=== PATIENT | female | born 1960 | race Caucasian/White ===

== ENCOUNTER 2020-10-18 10:36 | Inpatient (IN) ==
[2020-10-18] MEDS ORDERED: IPRATROPIUM/ALBUTEROL 3 ML AMPUL.NEB NEB ONE (10:46)
[2020-10-18] MEDS ORDERED: ONDANSETRON 4 MG ODT TABLET SL ONE (10:46)
[2020-10-18] MEDS ORDERED: DEXAMETHASONE 10 MG/ML VIAL IM ONE (10:46)
[2020-10-18] MEDS ORDERED: HYDROcodone/APAP 5/325MG TABLET PO ONE (10:46)
[2020-10-18] MEDS ORDERED: ALBUTEROL SULFATE 5 MG/ML NEB SOLUTION BOTTLE NEB ONE (11:28)
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
[2020-10-18 14:49] LABS: Blood Urea Nitrogen 16 mg/dL (8-23); Carbon Dioxide 25 mmol/L (22-30); Chloride 100 mmol/L (96-108); Glomerular Filtration Rate 79; Glucose 121 mg/dL (70-105)
--- NOTE | 2020-10-18 14:53 | XRay Report ---
CLINICAL INFORMATION: SOB COMPARISON: 10/05/2020 FINDINGS: Heart size, mediastinum and pulmonary vessels are normal. Lung volumes are mildly elevated with minimal wall thickening of the central bronchi compatible with clinical diagnosis of asthma. No change. No infiltrates or effusions. IMPRESSION: Asthma-no change Interpreted and Authenticated by: Olaf Mckeon 10/18/20
[2020-10-18 14:55] LABS: Basophils # (Auto) 0.01 K/mcL (0.00-0.20); Basophils % (Auto) 0.1 % (0.0-2.0); Eosinophils # (Auto) 0.07 K/mcL (0.00-0.70); Eosinophils % (Auto) 0.8 % (0.0-7.0); Hematocrit 39.7 % (36.0-48.0); Lymphocytes # (Auto) 0.43 K/mcL (1.50-4.80); Lymphocytes % (Auto) 4.9 % (15.0-49.0); Mean Corpuscular HGB Conc 32.7 g/dL (31.0-36.0); Mean Platelet Volume 10.2 fL (7.4-10.4); Monocytes # (Auto) 0.13 K/mcL (0.10-0.90); Monocytes % (Auto) 1.5 % (1.0-12.0); Neutrophils % (Auto) 92.7 % (38.0-78.0); Platelet Count 143 K/mcL (140-440); RBC 4.18 M/mcL (4.00-5.20); Red Cell Distribution Width 14.6 % (11.5-14.5); WBC 8.8 K/mcL (4.5-11.0)
[2020-10-18] MEDS ORDERED: methylPREDNISolone SOD SUCC 40 MG/ML VIAL IV ONE ×2 (15:01→16:21)
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
[2020-10-18] MEDS ORDERED: MAGNESIUM SULFATE 2 GM/50 ML BAG IV PRN (16:21)
[2020-10-18] MEDS ORDERED: oxyCODONE/APAP 5/325MG TABLET PO PRN (16:21)
[2020-10-18] MEDS ORDERED: SENNOSIDES 1 TABLET PO PRN (16:21)
[2020-10-18] MEDS ORDERED: POTASSIUM CHLORIDE 40 MEQ in DEXTROSE 5% IN WATER 500 ML IV PRN (16:21)
[2020-10-18] MEDS ORDERED: ONDANSETRON 4 MG/2 ML VIAL IV PRN (16:21)
[2020-10-18] MEDS ORDERED: POTASSIUM CHLORIDE 20 MEQ TABLET PO PRN ×2 (16:21)
[2020-10-18] MEDS ORDERED: POLYETHYLENE GLYCOL 3350 17 GM PACKET PO PRN (16:21)
[2020-10-18] MEDS: IPRATROPIUM/ALBUTEROL 3 ML AMPUL.NEB NEB SCH ×2 (19:36→22:49)
[2020-10-18] MEDS: BUDESONIDE 0.5 MG/2 ML AMPUL.NEB NEB SCH (19:36)
[2020-10-18] MEDS: OMEPRAZOLE 20 MG CAPSULE PO SCH (21:15)
[2020-10-18] MEDS: SERTRALINE 50 MG TABLET PO SCH (21:15)
[2020-10-18] MEDS: MONTELUKAST 10 MG TABLET PO SCH (21:15)
[2020-10-18] MEDS: APIXABAN 5 MG TABLET PO SCH (21:15)
[2020-10-18] MEDS: TOLTERODINE 2 MG CAP.XL.24H PO SCH (21:16)
[2020-10-18] MEDS: 0.9 % SODIUM CHLORIDE 10 ML SYRINGE IV SCH (21:19)
[2020-10-18] MEDS: methylPREDNISolone SOD SUCC 125 MG/2 ML VIAL IV SCH (21:19)
[2020-10-18] MEDS ORDERED: methylPREDNISolone SOD SUCC 125 MG/2 ML VIAL IV SCH ×2 (22:00)
[2020-10-19] MEDS: IPRATROPIUM/ALBUTEROL 3 ML AMPUL.NEB NEB SCH ×6 (03:37→22:30)
[2020-10-19] MEDS: ACETAMINOPHEN 325 MG TABLET PO PRN ×3 (03:53→18:54)
[2020-10-19] MEDS: 0.9 % SODIUM CHLORIDE 10 ML SYRINGE IV SCH ×4 (06:21→22:24)
[2020-10-19] MEDS: methylPREDNISolone SOD SUCC 125 MG/2 ML VIAL IV SCH ×3 (06:21→22:25)
[2020-10-19 06:34] LABS: Basophils # (Auto) 0.02 K/mcL (0.00-0.20); Basophils % (Auto) 0.1 % (0.0-2.0); Eosinophils # (Auto) 0.01 K/mcL (0.00-0.70); Eosinophils % (Auto) 0.1 % (0.0-7.0); Hematocrit 41.6 % (36.0-48.0); Hemoglobin 13.3 g/dL (12.0-15.0); Lymphocytes # (Auto) 0.65 K/mcL (1.50-4.80); Lymphocytes % (Auto) 4.7 % (15.0-49.0); Mean Cell Volume 94.3 fL (80.0-100.0); Mean Platelet Volume 9.9 fL (7.4-10.4); Monocytes # (Auto) 0.34 K/mcL (0.10-0.90); Monocytes % (Auto) 2.5 % (1.0-12.0); Neutrophils % (Auto) 92.6 % (38.0-78.0); Platelet Count 168 K/mcL (140-440); RBC 4.41 M/mcL (4.00-5.20); Red Cell Distribution Width 14.4 % (11.5-14.5); WBC 13.8 K/mcL (4.5-11.0)
[2020-10-19] MEDS: BUDESONIDE 0.5 MG/2 ML AMPUL.NEB NEB SCH ×2 (07:11→22:30)
[2020-10-19 07:16] LABS: ALT/SGPT 17 U/L (<40); AST/SGOT 17 U/L (<32); Albumin 4.5 gm/dL (3.2-5.2); Albumin/Globulin Ratio 1.9 (1.0-2.3); Alkaline Phosphatase 52 U/L (39-117); Bilirubin,Direct < 0.2 mg/dL (0-0.3); Bilirubin,Total 0.3 mg/dL (0.1-1.0); Blood Urea Nitrogen 14 mg/dL (8-23); Calcium 9.6 mg/dL (8.6-10.4); Carbon Dioxide 27 mmol/L (22-30); Chloride 99 mmol/L (96-108); Globulin 2.4 gm/dL (2.2-3.7); Glomerular Filtration Rate 98; Glucose 142 mg/dL (70-105); Lactate Dehydrogenase 182 U/L (135-225); Phosphorous 2.6 mg/dL (2.5-4.5); Triglycerides 62 mg/dL (<150); Uric Acid 4.4 mg/dL (2.5-8.0)
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
[2020-10-19] MEDS ORDERED: OMEPRAZOLE 20 MG CAPSULE PO SCH (07:30)
[2020-10-19] MEDS: APIXABAN 5 MG TABLET PO SCH ×2 (08:12→20:46)
[2020-10-19] MEDS ORDERED: MONTELUKAST 10 MG TABLET PO SCH (09:00)
[2020-10-19] MEDS ORDERED: TOLTERODINE 2 MG CAP.XL.24H PO SCH (09:00)
[2020-10-19] MEDS ORDERED: SERTRALINE 100 MG TABLET PO SCH (09:00)
[2020-10-19] MEDS: MONTELUKAST 10 MG TABLET PO SCH (20:46)
[2020-10-19] MEDS: OMEPRAZOLE 20 MG CAPSULE PO SCH (20:46)
[2020-10-19] MEDS: TOLTERODINE 2 MG CAP.XL.24H PO SCH (20:46)
[2020-10-19] MEDS: SERTRALINE 50 MG TABLET PO SCH (20:46)
--- NOTE | 2020-10-19 22:00 | EKG ---
[facility] Test Date: 2020-10-18 Pat Name: Jonathan Puckett Department: ED Room: Gender: Female Phototypesetting Equipment Monitor: HOMA : 1960 Requested By: Miguel Ángel Ash Order Number: [id number] Reading MD: Gonzalo Pruitt M.D. Measurements Intervals Leonard Rate: 83 P: 65 [place]: 152 QRS: 63 QRSD: 86 T: 51 QT: 380 QTc: 447 Interpretive Statements SINUS RHYTHM NO PRIOR TRACING FOR COMPARISON NORMAL TRACING Electronically Signed On 10-19-2020 21:59:28 PDT by Gonzalo Pruitt M.D. /store/[email or web address]/[id number]
[2020-10-20] MEDS: IPRATROPIUM/ALBUTEROL 3 ML AMPUL.NEB NEB SCH ×4 (05:44→22:33)
[2020-10-20] MEDS: 0.9 % SODIUM CHLORIDE 10 ML SYRINGE IV SCH ×3 (05:44→21:28)
[2020-10-20] MEDS: methylPREDNISolone SOD SUCC 125 MG/2 ML VIAL IV SCH (05:44)
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
[2020-10-20] MEDS: APIXABAN 5 MG TABLET PO SCH ×2 (09:06→21:27)
[2020-10-20] MEDS: BUDESONIDE 0.5 MG/2 ML AMPUL.NEB NEB SCH ×2 (10:52→22:32)
[2020-10-20] MEDS ORDERED: BUTALB/ACETAMINOPHEN/CAFFEINE 1 TABLET PO PRN (11:16)
[2020-10-20] MEDS: ACETAMINOPHEN 325 MG TABLET PO PRN (11:16)
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
[2020-10-20] MEDS ORDERED: SERTRALINE 100 MG TABLET PO SCH (21:00)
[2020-10-20] MEDS ORDERED: methylPREDNISolone SOD SUCC 125 MG/2 ML VIAL IV SCH (21:00)
[2020-10-20] MEDS: TOLTERODINE 2 MG CAP.XL.24H PO SCH (21:26)
[2020-10-20] MEDS: OMEPRAZOLE 20 MG CAPSULE PO SCH (21:27)
[2020-10-20] MEDS: MONTELUKAST 10 MG TABLET PO SCH (21:27)
[2020-10-21] MEDS: 0.9 % SODIUM CHLORIDE 10 ML SYRINGE IV SCH (04:07)
[2020-10-21] MEDS ORDERED: IPRATROPIUM/ALBUTEROL 3 ML AMPUL.NEB NEB SCH (07:00)
[2020-10-21] MEDS: BUDESONIDE 0.5 MG/2 ML AMPUL.NEB NEB SCH (07:45)
[2020-10-21] MEDS: APIXABAN 5 MG TABLET PO SCH (07:48)
[2020-10-21] MEDS ORDERED: predniSONE 20 MG TABLET PO SCH (08:00)
== END 2020-10-21 11:35 | disposition home or self-care (01) | DRG 189 ==
LOC: ED 10:36 → ICU 16:26
PROVIDERS: ADMIT Internal Medicine; ATTEND Internal Medicine